=== PATIENT | male | born 1935 | race Caucasian/White ===

== ENCOUNTER 2020-02-04 12:25 | Outpatient (CLI) | payer MEDICARE, BC, SELFPAY ==
--- NOTE | 2020-02-04 12:36 | US_ITS ---
WS: [id number] RENAL ULTRASOUND HISTORY: ABNORMAL FINDING ON URINALYSIS COMPARISON: 02/18/2019 TECHNIQUE: 2-D and color Doppler imaging of the kidney submitted. Right kidney: 14.0 cm x 6.5 cm x 7.2 cm. Kidney is slightly enlarged. No hydronephrosis. Large cyst from the superior kidney measures 9.7 x 7 .8 x 10.5 cm. No solid component. There is an additional exophytic cyst from the superior pole. There are several small cyst throughout the remaining RIGHT kidney. Left kidney: 11.3 cm x 4.9 cm x 5.8 cm. Normal size kidney. Partially septated cyst in the mid kidney measures 1.5 x 1.7 x 2.0 cm. Additional simple cyst from the inferior pole measures 2.4 x 2.2 x 2.3 cm. Aorta: Normal. Urinary Bladder: Nondistended. Prostate gland is enlarged. US/US renal BI* [id number] IMPRESSION: 1. Bilateral renal cysts with no obstruction. 2. Largest cyst upper pole RIGHT kidney measures 9.7 x 7.8 x 10.5 cm. 3. Minimally complex cyst with septation mid LEFT kidney is unchanged with a m aximum diameter of 2.0 cm.
== END 2020-02-04 12:26 | disposition home or self-care (01) ==
LOC: RAD 12:29
PROVIDERS: Visit Provider Nurse Practitioner Family
DX: R82.90 Unspecified abnormal findings in urine (principal); Q61.02 Congenital multiple renal cysts
CPT/HCPCS: 76770

== ENCOUNTER 2020-04-25 13:12 | Outpatient (CLI) | payer MEDICARE, BC, SELFPAY ==
--- NOTE | 2020-04-25 13:31 | XR_ITS ---
WS: [id number] CHEST 2 VIEWS HISTORY: SHORTNESS OF BREATH COMPARISON: 08/29/2017 Lungs: Hyperexpanded lungs with flattened diaphragms. No pneumonia. No pleural effusion. Cardiac size: Normal. Mediastinum/Aorta: Normal mediastinum. Bones: Normal. XR/XR chest 2V* [id number] IMPRESSION: Chronic emphysema. No pneumonia.
== END 2020-04-25 13:13 | disposition home or self-care (01) ==
LOC: RADWPI 13:17
PROVIDERS: PCP Family Medicine; Visit Provider Nurse Practitioner Family
DX: R06.02 Shortness of breath (principal)
CPT/HCPCS: 71046

== ENCOUNTER 2020-09-12 11:42 | Outpatient (CLI) | payer MEDICARE, BC, SELFPAY ==
--- NOTE | 2020-09-12 11:52 | XRR_ITS ---
PROCEDURE INFORMATION: Exam: XR Chest Exam date and time: 09/12/2020 11:52 AM Age: 85 years old Clinical indication: Shortness of breath TECHNIQUE: Imaging protocol: XR of the chest. Views: 2 views. COMPARISON: CR XR chest 2V* [id number] 04/25/2020 1:36 PM FINDINGS: Lungs: There is increasing hazy prominence of interstitial infiltration in the left base which could represent a developing interstitial pneumonia possibly viral in nature. Subsegmental atelectasis is present in both lung bases. Pleural spaces: Unremarkable. No pleural effusion. No pneumothorax. Heart/Mediastinum: Unremarkable. No cardiomegaly. Bones/joints: Unremarkable. XR/XR chest 2V* [id number] IMPRESSION: There is developing mild hazy interstitial haze in the left base which may represent a developing interstitial pneumonia. Correlate clinically.
== END 2020-09-12 11:43 | disposition home or self-care (01) ==
LOC: RAD 11:50
PROVIDERS: PCP Family Medicine; Visit Provider Nurse Practitioner Family
DX: R06.02 Shortness of breath (principal)
CPT/HCPCS: 71046

== ENCOUNTER 2020-09-22 12:59 | Outpatient (CLI) | payer MEDICARE, BC, SELFPAY ==
--- NOTE | 2020-09-22 | CT_ITS ---
WS: [id number] CT CHEST TECHNIQUE: Noncontrast CT of the chest with coronal and sagittal reformatted images. CLINICAL INFORMATION: ASBESTOS EXPOSURE COMPARISON: None. DLP: 588.[address] scans at [facility] use at least one of these dose optimization techniques: automat ed exposure control; mA and/or kV adjustment per patient size (includes targeted exams where dose is matched to clinical indication); or iterative reconstruction. FINDINGS: Moderate chronic emphysematous changes. Patchy hazy groundglass infiltrates in the inferior posterior segment of both upper lobes bilaterally in a subpleural distribution. Small amount of patchy hazy ri ght basilar infiltrate in right middle lobe. Dependent parenchymal opacities/round atelectasis in bot h lung bases with intrinsic calcifications. Slight hazy opacities in both lower lobes. Mild bilateral traction bronchiectasis in the right greater than left lower lobes. A few calcified granulomas. Noncalcified nodule left upper lobe measuring 5 mm. Additional tiny nonc alcified nodule in the right upper lobe the lung apex anteriorly measuring 4 mm. No mediastinal or hi lar lymphadenopathy. Aortic calcification. Coronary calcification. Small pericardial effusion. Calcif ied subcarinal lymph nodes. Normal GE junction. Fatty atrophy of the pancreas. Adrenal glands are normal. Partially visualized lo bulated cyst upper pole right kidney measuring 9.5 x 8.1 CM. Hypertrophic changes thoracic spine. CT/CT chest wo con [id number] IMPRESSION: 1. Hazy groundglass interstitial infiltrates in the mid and lower lungs bilate rally mainly in a subpleural distribution. 2. Pleural thickening with dependent parenchymal opacities/round atelectasis i n both lung bases with intrinsic calcifications. Findings can be seen with asbe stos related lung disease. Recommend further evaluation with high-resolution CT and pulmonology consultation. 3. Bilateral right greater than left lower lobe traction bronchiectasis. 4. No mediastinal or hilar lymphadenopathy. 5. Small pericardial effusion.
== END 2020-09-22 13:00 | disposition home or self-care (01) ==
LOC: RADWPI 13:05
PROVIDERS: PCP Family Medicine; Visit Provider Nurse Practitioner Family
DX: Z77.090 Contact with and (suspected) exposure to asbestos (principal); R06.02 Shortness of breath; I31.3 Pericardial effusion (noninflammatory); J47.9 Bronchiectasis, uncomplicated; J98.11 Atelectasis
CPT/HCPCS: 71250

== ENCOUNTER 2020-09-29 10:54 | Outpatient (CLI) | payer MEDICARE, BC, SELFPAY ==
--- NOTE | 2020-09-29 11:24 | CT_ITS ---
WS: [id number] CT CHEST CT-HIGH RESOLUTION, NONCONTRAST. HISTORY: Interstitial lung disease. Technique: High-resolution chest CT is performed in inspiration, expiration, supine and prone positio neleam. All CT scans at [facility] use at least one of these dose optimization techniques: automa cali exposure control; mA and/or kV adjustment per patient size (includes targeted exams where dose is matched to clinical indication); or iterative reconstruction. DLP: 694.72 mGycm COMPARISON: 09/22/2020 Findings: Mild pulmonary hyperexpansion. Mild peripheral interstitial thickening and reticulations. T here are a few areas of groundglass attenuation in the periphery of the LEFT upper lobe, RIGHT middle lobe and lower lobes bilaterally. More focal areas of conglomeration at the lung bases. These focal areas of consolidation persist and do not change with expiration or prone imaging. There is very slig ht improvement in some of the groundglass areas of attenuation suggesting these are probably dependen t related and atelectasis. They did not completely resolved. No definite air trapping. Focal areas of very mild traction bronchiectasis at the lung bases bilaterally. No adenopathy. Mild ectasia thoracic aorta. Heart is slightly enlarged. CT/CT chest wo con [id number] Impression: 1. Very mild peripheral changes of early pulmonary fibrosis. No honeycombing a t this time. Traction bronchiectasis at the lung bases bilaterally and focal ar eas of conglomeration. 2. No definite air trapping. 3. Groundglass opacifications slightly improved with prone positioning sugges ting there may be a component of atelectasis. Consider acute superimposed proce ss on chronic disease. Consider chronic PE.
== END 2020-09-29 10:55 | disposition home or self-care (01) ==
PROVIDERS: PCP Family Medicine; Visit Provider Nurse Practitioner Family
DX: R91.8 Other nonspecific abnormal finding of lung field (principal); J84.9 Interstitial pulmonary disease, unspecified; J47.9 Bronchiectasis, uncomplicated
CPT/HCPCS: 71250

== ENCOUNTER 2020-10-16 08:35 | Outpatient (CLI) | payer MEDICARE, BC, SELFPAY ==
--- NOTE | 2020-10-16 08:42 | USCV_ITS ---
Sumit Posey Age: 85 Gender: M : 1935 Exam Date: 10/16/2020 09:15 Ordering Phys: Viviana Ribeiro NP Technologist: Exam Location: [facility] [place] Indication: SOB BP: 120 / 70 HR: 74 Rhythm: Sinus Technical Quality: Very technically difficult study MEASUREMENTS (Male / Female) Normal Values 2D ECHO LV Diastolic Diameter PLAX 4.5 cm 4.2 - 5.9 / 3.9 - 5.3 cm LV Systolic Diameter PLAX 3.5 cm IVS Diastolic Thickness 1.3 cm 0.6 - 1.0 / 0.6 - 0.9 cm IVS Systolic Thickness 1.8 cm LVPW Diastolic Thickness 1.2 cm 0.6 - 1.0 / 0.6 - 0.9 cm LVPW Systolic Thickness 1.7 cm LVOT Diameter 2.1 cm LV Ejection Fraction 2D Teich 37.8 % LV Ejection Fraction MOD 2C 52.6 % LV Ejection Fraction 2C AL 53.7 % LA Diameter 4.2 cm DOPPLER AV Peak Velocity 157.0 cm/s MV Area PHT 5.0 cm squared Mitral E to A Ratio 0.7 MV E' Velocity 24.5 cm/s Mitral E to MV E' Ratio 7.8 Mitral E to LV E' Lateral Ratio 8.5 Mitral E to LV E' Septal Ratio 7.3 TR Peak Velocity 125.0 cm/s TR Peak Gradient 6.3 mmHg Right Atrial Pressure 3.0 mmHg Pulmonary Artery Systolic Pressu 9.3 mmHg FINDINGS Left Ventricle Right Ventricle Right Atrium Left Atrium Mitral Valve Aortic Valve Tricuspid Valve Pulmonic Valve Pericardium Aorta CONCLUSIONS Technically very difficult study due to suboptimal images therefore full interpretation of studies not possible Normal left ventricle ejection fraction estimated ejection fraction at least 60%. Normal right ventricle size and function Valves are not well visualized No pericardial effusion noted Rosa Hope MD (Electronically Signed) Final Date: 17 October 2020 22:14 S
== END 2020-10-16 08:36 | disposition home or self-care (01) ==
PROVIDERS: PCP Family Medicine; Visit Provider Nurse Practitioner Family
DX: R06.02 Shortness of breath (principal)
CPT/HCPCS: C8929

== ENCOUNTER 2021-02-20 08:46 | Outpatient (CLI) | payer MEDICARE, BC, SELFPAY ==
--- NOTE | 2021-02-20 09:04 | US_ITS ---
WS: [id number] Complete ABDOMINAL ULTRASOUND HISTORY: HYPOALBUMINEMIA COMPARISON: 02/04/2020. Liver: 14.9 cm in length. Liver is normal size but poorly visualized due to poor acoustic windows. No abnormality identified. Gallbladder: Normally distended with no gallstones, wall thickening or pericholecystic fluid. Gallbladder wall thickness: 0.2 cm. Pancreas: Not visualized. CBD: 0.6 cm. Right kidney: 13.1 cm x 5.9 cm x 5.6 cm. Mildly enlarged kidney with a large cyst from the upper william e measures 8.4 x 9.4 x 8.0 cm which has been previously described. There are additional smaller cysts but no solid mass. Left kidney: 11.3 cm x 4.8 cm x 5.6 cm. Normal size kidney with no hydronephrosis. Multiple small cy sts. The largest in the mid kidney measures 2.4 x 2.1 x 2.1 cm. Spleen: Normal size with granulomata. Abdominal aorta and IVC are within normal limits. No ascites. US/US abdomen complete* [id number] IMPRESSION: 1. Normal gallbladder. 2. Bilateral renal cysts which have been previously described. No solid mass o r obstruction. 3. No bile duct dilatation. 4. Negative liver.
== END 2021-02-20 08:47 | disposition home or self-care (01) ==
LOC: RAD 08:55
PROVIDERS: PCP Family Medicine; Visit Provider Family Medicine
DX: E88.09 Other disorders of plasma-protein metabolism, not elsewhere classified (principal); Q61.02 Congenital multiple renal cysts
CPT/HCPCS: 76700

== ENCOUNTER 2021-06-05 08:18 | Emergency (ER) | payer MEDICARE, BC, SELFPAY ==
[2021-06-05 08:27] VITALS: BP 132/87; PULSE 112; RESP 20; TEMP 36.6; O2SAT 94; BMI 28.2
[2021-06-05 08:33] VITALS: BP 132/87; PULSE 112; RESP 20; TEMP 36.6; O2SAT 94
--- NOTE | 2021-06-05 08:47 | US_ITS ---
WS: [id number] ULTRASOUND RENAL TECHNIQUE: Ultrasound examination of both kidneys. CLINICAL INFORMATION: HANNAH COMPARISON: February 20, 2021 FINDINGS: Bilateral renal cysts similar to previous. RIGHT: Right kidney is normal in size and appearance. Echogenicity: Normal. Cortical thickness: cm; Normal. Hydronephrosis: Mild Perinephric fluid: None. Right kidney measures: 13.9 cm x 8.2 cm x 8.6 cm. LEFT: Left kidney is normal in size and appearance. Echogenicity: Normal. Cortical thickness: 1.8 cm; Normal. Hydronephrosis: Moderate Perinephric fluid: None. Left kidney measures: 12.7 cm x 7.6 cm x 7.5 cm. Normal visualized aorta. Distended bladder. US/US renal BI* [id number] IMPRESSION: 1. Mild RIGHT and moderate LEFT hydronephrosis. 2. Markedly distended urinary bladder measuring 1100cc 3. Bilateral renal cysts similar to previous.
[2021-06-05 08:53] LABS: Basophils % 0.1 %; Hematocrit 42.2 % (42.0-52.0); Hemoglobin 14.3 g/dL (11.7-16.6); Lymphocytes # 0.8 10^3/uL (0.8-4.8); Lymphocytes % 3.9 %; Mean Corpuscular HGB Conc 33.9 g/dL (30.0-36.0); Mean Corpuscular Hemoglobin 32.9 pg (28.0-34.0); Mean Corpuscular Volume 97.2 fl (80-94); Monocytes # 1.7 10^3/uL (0.2-0.9); Monocytes % 8.3 %; Neutrophils # 17.44 10^3/uL (1.8-7.7); Neutrophils % 87.2 %; Nucleated Red Blood Cells % 0 %; Platelet Count 225 10^3/cmm (130-400); Red Blood Count 4.34 10^6/uL (4.1-5.3); Red Cell Distribution Width 12.6 % (12.1-15.1)
--- NOTE | 2021-06-05 08:53 | ED_ITS ---
HPI - Abdominal Pain General: Chief Complaint: Abdominal Pain Stated Complaint: Stomach pain, Doctor sent pt. Time Seen by Provider: 06/05/21 08:20 Source: patient Mode of arrival: ambulatory Limitations: altered mental status (Chronic dementia issues) History of Present Illness: 86-year-old male presents emergency room with complaints of lower abdominal pain suprapubic area pain. He has been having frequent but relatively painless urination. He has a history of BPH reports he is going to the bathroom about every 15 to 20 minutes in small amounts. He is not had any fever sweats or chills. He was seen yesterday with complaint of abdominal pain and presumptively treated with antibiotics for diverticulitis. Lab work done evidently indicated acute renal injury and when the results came back sworn he was contacted by his primary care doctor and referred to the emergency room. Denies any chest pain or shortness of breath. He has had loose stools recently no hematochezia melena hematemesis or coffee- ground emesis. His chronic dementia issues is not had any significant change recently and feels he is at his normal baseline. He is on tamsulosin 1 he has had no medication changes recently. Symptoms started about 3 to 4 days ago and are progressively worsening. MD elicited complaint: abdominal pain Onset (ago): day(s) (3-4) Location: Suprapubic Severity: mild Quality: cramping Exacerbating factors: nothing Relieving factors: nothing Associated Symptoms: Reports bloating, change in bowel habits, GI cramping, diarrhea and poor appetite; Denies anorexia, belching, change in stool character, chills, coffee ground emesis, constipation, dyspepsia, dysuria, excessive flatus, fever(s), heartburn, hematochezia, hematuria, hematemesis, fecal incontinence, loose stools, melena, nausea and vomiting Review of Systems Const: Denies: fever(s) or chills ENMT: Denies: throat pain, ear or mastoid pain, nasal discharge or nasal congestion Card: Denies: chest pain, edema, dyspnea on exertion or orthopnea Resp: Denies: dyspnea, productive cough or non-productive cough GI: Reports: diarrhea, bloating, GI cramping and change in bowel habits; Denies: nausea, vomiting, hematemesis, coffee ground emesis, heartburn, constipation, belching, excessive flatus, fecal incontinence, change in stool character, hematochezia or melena : Denies: dysuria or hematuria PFSH ED PFSH: Medical History COPD (chronic obstructive pulmonary disease) Social History Smoking and tobacco status: former smoker (Smoked 30 years at 1 ppd. Quit in 1991) Quit status (tobacco): has quit using tobacco Year quit tobacco: 1991 Former quit date comment: Smoked 30 years at 1 ppd Second hand smoke exposure: No Smoking risk assessment/counseling performed?: No Alcohol intake: former Physical Exam Const: COMMON NORMALS: no acute distress GENERAL APPEARANCE: cooperative and comfortable ORIENTATION/CONSCIOUSNESS: Yes awake HENMT: COMMON NORMALS: normocephalic and atraumatic HEAD & SCALP: normo cephalic and atraumatic Neck/C-Spine: COMMON NORMALS: no JVD Resp: COMMON NORMALS: normal respiratory effort, No retractions, No use of accessory muscles and clear to auscultation bilaterally AUSCULTATION: clear to auscultation bilaterally Cardio: COMMON NORMALS: no JVD, regular rate, regular rhythm and No murmurs present (Cardio) RATE: regular rate RHYTHM: regular rhythm GI: COMMON NORMALS: Soft to palpation and No hepatosplenomegaly present AUSCULTATION: Yes normoactive bowel sounds PALPATION: Yes Soft to palpation, Yes Tenderness to palpation present (GI) (Suprapubic fullness and mild tenderness bladder palpable to the level of 3 ), No Guarding due to palpation present (GI) and Yes No hepatosplenomegaly present : COMMON NORMALS: Yes no CVA tenderness BLADDER/KIDNEY EXAM: Yes no CVA tenderness Back/Pelvis: COMMON NORMALS: no CVA tenderness Extremity: COMMON NORMALS: normal to inspection, capillary refill normal, no clubbing, cyanosis or edema, no calf tenderness and no pedal edema Skin: COMMON NORMALS: no rashes or lesions noted GENERAL SKIN EXAM: no rashes or lesions noted Course Vital Signs: Vital signs: Vital Signs Temperature 97.8 F 06/05/21 08:33 Pulse Rate 85 06/05/21 11:00 Respiratory Rate 20 H 06/05/21 11:00 Blood Pressure 150/89 06/05/21 11:00 Pulse Oximetry 94 06/05/21 11:00 MDM - Abdominal Pain Medical Decision Making Labs from the visit yesterday reviewed. Renal function bilirubin are much better. He does look like is a small bladder infection on exam he obviously had urinary retention. Ultrasound and placement of catheter confirms large volume urine out immediately after placement he is feeling better. Will cover with short course of Cipro as he does seem to have some sign of infection on his urine is also being cultured. Additionally we will increase his tamsulosin and set him up for outpatient follow-up with urology. Discussed with the that he will need a leg bag for the next several days. He should have his lab work repeated in 2 to 3 days with his primary care doctor. His white count is markedly elevated but on exam after placement of Cardenas he has no significant abdominal pain suspect this may have been stress from the urinary retention he is not had a fever at this time. We are covering with antibiotics till we get the culture back. He was also given 1 L of fluid prior to discharge. Overall patient does not toxic in appearing advised the to return if she has any concerns or she develops new or different symptoms. 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 Medical Records I reviewed the patient's medical records. Lab Data I reviewed the patient's lab results. : 06/05/21 08:46 06/05/21 08:46 Labs/Radiology: Radiology Impressions Renal Ultrasound 06/05/21 08:47 IMPRESSION: 1. Mild RIGHT and moderate LEFT hydronephrosis. 2. Markedly distended urinary bladder measuring 1100cc 3. Bilateral renal cysts similar to previous. Laboratory Results WBC 20.0 10^3/uL (4.0-10.0) H 06/05/21 08:46 RBC 4.34 10^6/uL (4.1-5.3) 06/05/21 08:46 Hgb 14.3 g/dL (11.7-16.6) 06/05/21 08:46 Hct 42.2 % (42.0-52.0) 06/05/21 08:46 MCV 97.2 fl (80-94) H 06/05/21 08:46 MCH 32.9 pg (28.0-34.0) 06/05/21 08:46 MCHC 33.9 g/dL (30.0-36.0) 06/05/21 08:46 RDW 12.6 % (12.1-15.1) 06/05/21 08:46 Plt Count 225 10^3/cmm (130-400) 06/05/21 08:46 MPV 11.0 fL (7.4-10.4) H 06/05/21 08:46 Neut % (Auto) 87.2 % 06/05/21 08:46 Lymph % (Auto) 3.9 % 06/05/21 08:46 Mccreary % (Auto) 8.3 % 06/05/21 08:46 Eos % (Auto) 0.0 % 06/05/21 08:46 Baso % (Auto) 0.1 % 06/05/21 08:46 Neut # (Auto) 17.44 10^3/uL (1.8-7.7) H 06/05/21 08:46 Lymph # (Auto) 0.8 10^3/uL (0.8-4.8) 06/05/21 08:46 Mccreary # (Auto) 1.7 10^3/uL (0.2-0.9) H 06/05/21 08:46 Eos # (Auto) 0.0 10^3/uL (0.0-0.8) 06/05/21 08:46 Baso # (Auto) 0.0 10^3/uL (0.0-0.1) 06/05/21 08:46 Nucleated RBC % (auto) 0 % 06/05/21 08:46 Nucleated RBCs # 0.0 /100WBC 06/05/21 08:46 Sodium 138 mmol/L (136-145) 06/05/21 08:46 Potassium 4.5 mmol/L (3.5-5.1) 06/05/21 08:46 Chloride 103 mmol/L (98-107) 06/05/21 08:46 Carbon Dioxide 18 mmol/L (22-29) L 06/05/21 08:46 Anion Gap 21.5 (5-19) H 06/05/21 08:46 BUN 60 mg/dL (8-23) H 06/05/21 08:46 Creatinine 1.8 mg/dL (0.7-1.2) H 06/05/21 08:46 GFR Calculation Not Reportable 06/05/21 08:46 Glucose 224 mg/dL (65-115) H 06/05/21 08:46 Calculated Osmolality 310 mOsm/kg (285-295) H 06/05/21 08:46 Lactic Acid 2.1 mmol/L (0.5-2.2) 06/05/21 09:30 Calcium 9.2 mg/dL (8.5-10.5) 06/05/21 08:46 Total Bilirubin 1.7 mg/dL (0.15-1.2) H 06/05/21 08:46 AST 48 U/L (0-40) H 06/05/21 08:46 ALT 40 U/L (0-41) 06/05/21 08:46 Alkaline Phosphatase 82 IU/L (40-130) 06/05/21 08:46 Total Protein 7.0 g/dL (6.6-8.7) 06/05/21 08:46 Albumin 4.2 g/dL (3.5-5.2) 06/05/21 08:46 Globulin 2.8 g/dL (1.3-4.6) 06/05/21 08:46 Urine Color Yellow (Yellow) 06/05/21 09:47 Urine Appearance Clear (CLEAR) 06/05/21 09:47 Urine pH 5 (5-7) 06/05/21 09:47 Ur Specific [place] 1.015 (1.005-1.030) 06/05/21 09:47 Urine Protein Neg (Negative) 06/05/21 09:47 Urine Glucose (UA) Norm (Normal) 06/05/21 09:47 Urine Ketones Negative (Negative) 06/05/21 09:47 Urine Blood 2+ (Negative) H 06/05/21 09:47 Urine Nitrate Negative (Negative) 06/05/21 09:47 Urine Bilirubin Neg (Negative) 06/05/21 09:47 Urine Urobilinogen Norm mg/dL (Negative) 06/05/21 09:47 Ur Leukocyte Esterase Trace (Negative) H 06/05/21 09:47 Urine RBC 10-15 /hpf (0-2) H 06/05/21 09:47 Urine WBC 5-10 /hpf (0-5) H 06/05/21 09:47 Ur Squamous Epith Cells 0-4 /hpf (0-5) H 06/05/21 09:47 Amorphous Sediment Not Reportable 06/05/21 09:47 Urine Bacteria Trace /hpf (NONE) 06/05/21 09:47 Urine Mucus 1+ /hpf 06/05/21 09:47 Discharge Plan Discharge Patient Disposition: Home Clinical Impression: Acute urinary retention, Acute kidney injury, Gilbert syndrome Condition: Stable Prescriptions: New Cipro 250 mg tablet 250 mg PO BID Qty: 10 0RF Changed tamsulosin 0.4 mg capsule 0.8 mg PO DAILY Qty: 60 0RF No Action atorvastatin 40 mg tablet 40 mg PO BEDTIME 0RF Spiriva Respimat 2.5 mcg/actuation mist 2 puff inhalation DAILY 0RF multivitamin Tablet 1 tab PO QAM 0RF aspirin [Adult Low Dose Aspirin] 81 mg tablet,delayed release (DR/EC) 81 mg PO QAM 0RF levothyroxine 125 mcg tablet 125 mcg PO QAM 0RF ProAir HFA 90 mcg/actuation HFA aerosol inhaler 2 puff INHALATION Q4H PRN (Reason: Shortness Of Breath) 0RF amoxicillin-pot clavulanate 500-125 mg tablet 1 tab PO TID 0RF Rx Instructions: rx filled 06/04/21 10d/s midodrine 10 mg tablet 10 mg PO TID 0RF Discharge Orders: Discharge ED (Routine); Ordered 06/05/21 Ordered By: Ousmane Gentile Referrals: Remington Patel MD [Primary Care Provider] - Discharge Diet: Usual diet Patient Instructions: Opioid Safety Activity Restrictions/Additional Instructions: surgery manager will make arrangements for you to follow-up with urologist within the next 10 to 14 days. Use the leg bag until then. Increase tamsulosin to 2 tablets at night. Also take the 5-day course of ciprofloxacin. You have repeat labs done in 2 to 3 days at your primary care doctor's office return if you have further problems. Coding Level of Care Code ED Data Operations Manager for Chg Fwd Exam Comprehensive
[2021-06-05 09:22] LABS: Alanine Aminotransferase 40 U/L (0-41); Albumin Level 4.2 g/dL (3.5-5.2); Alkaline Phosphatase 82 IU/L (40-130); Blood Urea Nitrogen 60 mg/dL (8-23); Calcium 9.2 mg/dL (8.5-10.5); Carbon Dioxide 18 mmol/L (22-29); Chloride 103 mmol/L (98-107); Globulin 2.8 g/dL (1.3-4.6); Glucose 224 mg/dL (65-115); Osmolality Calculated 310 mOsm/kg (285-295); Sodium 138 mmol/L (136-145); Total Bilirubin 1.7 mg/dL (0.15-1.2)
[2021-06-05 09:24] LABS: Anion Gap 21.5 (5-19); Aspartate Amino Transferase 48 U/L (0-40); Potassium 4.5 mmol/L (3.5-5.1)
[2021-06-05 09:33] VITALS: PULSE 92; O2SAT 93
[2021-06-05 10:08] LABS: Lactic Sepsis W/Reflex 2.1 mmol/L (0.5-2.2)
[2021-06-05 10:13] LABS: Add Urine Microscopic? YES; Bilirubin Urine Neg (Negative); Blood Urine 2+ (Negative); Glucose Urine UA Norm (Normal); Ketones Urine Negative (Negative); Leukocyte Esterase Urine Trace (Negative); Nitrate Urine Negative (Negative); Protein Urine Neg (Negative); Specific Gravity, Urine 1.015 (1.005-1.030); Urine Appearance Clear (CLEAR); Urine Color Yellow (Yellow); Urobilinogen Urine Norm (Negative); pH Urine 5 (5-7)
[2021-06-05 10:14] LABS: Add Urine Culture? Yes; Bacteria Urine TRACE /hpf; Mucus Urine 1+ /hpf; Squamous Epithelial Cell Urine 0-4 /hpf (0-5)
[2021-06-05 10:30] VITALS: BP 141/88; PULSE 86; RESP 18; O2SAT 93
[2021-06-05] MEDS: sodium chloride 0.9% 1,000 ML 999 ML IV (10:36)
[2021-06-05 11:00] VITALS: BP 150/89; PULSE 85; RESP 20; O2SAT 94
[2021-06-05 11:26] LABS: Reflex Lactate Order REFLEX LACTIC ORDERD
== END 2021-06-05 11:40 | disposition home or self-care (01) ==
PROVIDERS: Emergency Provider Family Medicine; PCP Family Medicine
DX: R33.9 Retention of urine, unspecified (principal); N17.9 Acute kidney failure, unspecified; E80.4 Gilbert syndrome; Z79.82 Long term (current) use of aspirin; J44.9 Chronic obstructive pulmonary disease, unspecified; Z87.891 Personal history of nicotine dependence
CPT/HCPCS: 51702; 76770; 76857; 80053; 81001; 83605; 85025; 87040; 87086; 96360; 99284; J7030

== ENCOUNTER 2021-06-15 10:23 | Outpatient (CLI) | payer MEDICARE, BC, SELFPAY ==
--- NOTE | 2021-06-15 11:02 | ECG_ITS ---
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 Measurements Intervals [place] Rate: 85 P: 46 IN: 150 QRS: 27 QRSD: 80 T: 25 QT: 348 QTc: 416 Interpretive Statements SINUS RHYTHM WITH OCCASIONAL SUPRAVENTRICULAR PREMATURE COMPLEXES MINIMAL ST DEPRESSION [0.025+ mV ST DEPRESSION] Compared to ECG 07/18/2017 10:06:55 ST (T wave) deviation now present Myocardial infarct finding no longer present Electronically Signed On 06-15-2021 11:16:02 CDT by Anabelle Mclain M.D. [id number]
[2021-06-15 11:19] LABS: Bacteria Urine TRACE /hpf; Bilirubin Urine 1+ (Negative); Blood Urine 3+ (Negative); Glucose Urine UA Norm (Normal); Ketones Urine Negative (Negative); Leukocyte Esterase Urine Trace (Negative); Mucus Urine 1+ /hpf; Nitrate Urine Negative (Negative); Protein Urine 1+ (Negative); RBC Urine >100 /hpf (0-2); Squamous Epithelial Cell Urine 0-4 /hpf (0-5); Urine Appearance SL Hazy (CLEAR); Urine Color Yellow (Yellow); Urobilinogen Urine 4 mg/dL (Negative); WBC Urine 0-4 /hpf (0-5); pH Urine 7 (5-7)
[2021-06-15 11:20] LABS: Anion Gap 13.9 (5-19); Blood Urea Nitrogen 15 mg/dL (8-23); Carbon Dioxide 24 mmol/L (22-29); Chloride 103 mmol/L (98-107); Glucose 129 mg/dL (65-115); Osmolality Calculated 287 mOsm/kg (285-295); Potassium 3.9 mmol/L (3.5-5.1); Sodium 137 mmol/L (136-145)
[2021-06-15 11:20] LABS: Add Urine Culture? Yes
== END 2021-06-15 10:24 | disposition home or self-care (01) ==
LOC: LAB 10:29
PROVIDERS: PCP Family Medicine; Visit Provider Urology
DX: Z01.818 Encounter for other preprocedural examination (principal); D49.4 Neoplasm of unspecified behavior of bladder
CPT/HCPCS: 36415; 80048; 81001; 93005

== ENCOUNTER 2022-10-19 12:10 | Emergency (ER) | payer MEDICARE, BC, SELFPAY ==
[2022-10-19] VITALS (8 sets, daily range): BP systolic 135–175; BP diastolic 89–113; PULSE 99–115; RESP 16; TEMP 36.8; O2SAT 94–97
--- NOTE | 2022-10-19 13:32 | W.ED.NAVMDI ---
HPI - Nausea/Vomiting/Diarrhea General: Chief complaint: Nausea/Vomiting/Diarrhea Stated complaint: Diarrhea Time Seen by Provider: 10/19/22 13:27 History of Present Illness: Mr. Posey is an 87-year-old gentleman with history of dementia presented the emergency department for evaluation of abdominal symptoms. He notes acute onset of diarrhea with numerous watery episodes per day for the past 3 days. Mild abdominal cramping. Some elevated heart rate and pallor as well as generalized malaise. No fevers. Denies preceding antibiotic use or other known triggering event. No other specific changes in health, exacerbating, or alleviating factors identified. Onset (ago): day(s) Description of diarrhea: watery Associated nausea: Yes Associated abdominal pain: Yes Location of pain: Diffuse Pain consistency: intermittent Severity: moderate Quality: cramping Associated symtoms: Reports nausea Review of Systems General: Reports: 10 or more systems reviewed and unremarkable except in HPI and below GI: Reports: nausea PFSH ED PFSH: Medical History BPH (benign prostatic hyperplasia) COPD (chronic obstructive pulmonary disease) Dementia History of prostate cancer Hypercholesterolemia Hypothyroidism Orthostatic hypotension Social History Smoking and tobacco status: former smoker (Smoked 30 years at 1 ppd. Quit in 1991) Quit status (tobacco): has quit using tobacco Year quit tobacco: 1991 Former quit date comment: Smoked 30 years at 1 ppd Second hand smoke exposure: No Smoking risk assessment/counseling performed?: No Alcohol intake: former Physical Exam Const: COMMON NORMALS: alert GENERAL APPEARANCE: cooperative and well developed HENMT: COMMON NORMALS: normocephalic and atraumatic HEAD & SCALP: normocephalic and atraumatic Eye: COMMON NORMALS: conjunctivae normal CONJUNCTIVA: Yes conjunctivae normal SCLERA: sclerae normal Neck/C-Spine: COMMON NORMALS: supple GENERAL: Yes trachea midline Resp: COMMON NORMALS: clear to auscultation bilaterally EFFORT & INSPECTION: Yes able to speak in complete sentences AUSCULTATION: clear to auscultation bilaterally Cardio: COMMON NORMALS: regular rhythm RATE: tachycardic RHYTHM: regular rhythm GI: COMMON NORMALS: Soft to palpation PALPATION: Yes Soft to palpation, Yes Tenderness to palpation present (GI), No Guarding due to palpation present (GI) and No Rigid due to palpation Extremity: GENERAL: Yes normal exam except as noted and No edema Neuro: COMMON NORMALS: moves all extremities SENSORIUM/ORIENTATION: Yes alert and No Orientation impaired Psych: COMMON NORMALS: mental status grossly normal and Normal thought process present THOUGHT PROCESS: Normal thought process present Procedures Rectal Disimpaction Time out performed rectal disimpaction: Yes Indication: fecal impaction Technique: manual disimpaction with gloved finger Result: significant stool output Patient Tolerated Procedure: well and no complications Course Vital Signs: Vital signs: Vital Signs Temperature 98.2 F 10/19/22 12:31 Pulse Rate 102 H 10/19/22 20:17 Respiratory Rate 16 10/19/22 12:31 Blood Pressure 147/99 10/19/22 20:17 Pulse Oximetry 96 10/19/22 20:17 Oxygen Delivery Me thod Room Air 10/19/22 20:17 MDM - Nausea/Vomiting/Diarrhea Medical Decision Making 87-year-old gentleman presenting with abdominal symptoms. Exam as above. Abdominal tenderness without evidence of acute surgical abdomen. Somewhat ill however nontoxic. Labs with leukocytosis, normal hemoglobin and platelet count. Metabolic panel with evidence of dehydration. Mild elevation in T. bili again noted. Negative Booker and pain is not specifically worse in the right upper quadrant. CT with rectal stool ball and moderate colonic stool burden. Lung nodule and incidental findings discussed. With need for follow-up discussed. Rectal disimpaction performed with improvement. Treated with IV fluids and medications and patient subsequently. Discussed possible disposition options, patient and are pleased with improvement and understand need for hydration and close follow-up. They were comfortable with outpatient management. The results of ED evaluation were discussed with the patient including prescriptions and/or symptomatic cares (if applicable) including appropriate and responsible use, followup plan, and return precautions. The patient verbalized understanding and felt safe for discharge. Medical Records I reviewed the patient's medical records. Lab Data I reviewed the patient's lab results. 10/19/22 13:59 10/19/22 13:59 Radiology Impressions Abdomen/Pelvis CT 10/19/22 14:09 IMPRESSION: 1. Large rectal stool ball with otherwise moderate colonic stool burden. 2. 1.5 x 1.0 cm left lower lobe nodule. For both low risk and high risk patients, consider CT Chest at 3 months, PET/CT or biopsy. (Reference: Clay) 3. Mildly increased size of ovoid 1.3 cm hypodensity just posterior to the distal common duct may represent bile duct diverticulum. 4. Mild left pelvocaliectasis without stone similar in degree to April 2017 may represent patulous collecting system. 5. Atherosclerosis with stable 2.5 cm infrarenal abdominal aortic ectasia. 6. Additional chronic and incidental findings as above, to include colonic diverticulosis and gynecomastia. COMMENTS: Consistent with the [place] [employer]'s Incidental Findings Committee white paper (J Am Good Radiol 2018): Any incidental renal lesion less than 1 cm or classified as too small to characterize, or any incidental cystic renal lesion characterized as simple-appearing, is likely benign. No follow-up imaging is recommended for these lesions per consensus recommendations based on imaging criteria. REFERENCES: Clay Huerta, et al. Guidelines for Management of Incidental Pulmonary Nodules Detected on CT Images: From the Fleischner Society 2017. Radiology. 2017;284(1):228-243. Laboratory Results WBC 17.6 10^3/uL (4.0-10.0) H 10/19/22 13:59 RBC 4.64 10^6/uL (4.1-5.3) 10/19/22 13:59 Hgb 14.7 g/dL (11.7-16.6) 10/19/22 13:59 Hct 44.4 % (42.0-52.0) 10/19/22 13:59 MCV 95.7 fl (80-94) H 10/19/22 13:59 MCH 31.7 pg (28.0-34.0) 10/19/22 13:59 MCHC 33.1 g/dL (30.0-36.0) 10/19/22 13:59 RDW 13.4 % (12.1-15.1) 10/19/22 13:59 Plt Count 244 10^3/cmm (130-400) 10/19/22 13:59 MPV 10.7 fL (7.4-10.4) H 10/19/22 13:59 Neut % (Auto) 87.4 % 10/19/22 13:59 Lymph % (Auto) 4.6 % 10/19/22 13:59 [place] % (Auto) 7.5 % 10/19/22 13:59 Eos % (Auto) 0.0 % 10/19/22 13:59 Baso % (Auto) 0.2 % 10/19/22 13:59 Neut # (Auto) 15.35 10^3/uL (1.8-7.7) H 10/19/22 13:59 Lymph # (Auto) 0.8 10^3/uL (0.8-4.8) 10/19/22 13:59 [place] # (Auto) 1.3 10^3/uL (0.2-0.9) H 10/19/22 13:59 Eos # (Auto) 0.0 10^3/uL (0.0-0.8) 10/19/22 13:59 Baso # (Auto) 0.0 10^3/uL (0.0-0.1) 10/19/22 13:59 Nucleated RBC % (auto) 0 % 10/19/22 13:59 Nucleated RBCs # 0.0 /100WBC 10/19/22 13:59 Sodium 142 mmol/L (136-145) 10/19/22 13:59 Potassium 4.2 mmol/L (3.5-5.1) 10/19/22 13:59 Chloride 106 mmol/L (98-107) 10/19/22 13:59 Carbon Dioxide 19 mmol/L (22-29) L 10/19/22 13:59 Anion Gap 21.2 (5-19) H 10/19/22 13:59 BUN 33 mg/dL (8-23) H 10/19/22 13:59 Creatinine 1.5 mg/dL (0.7-1.2) H 10/19/22 13:59 GFR Calculation Not Reportable 10/19/22 13:59 Glucose 168 mg/dL (65-115) H 10/19/22 13:59 Calculated Osmolality 305 mOsm/kg (285-295) H 10/19/22 13:59 Calcium 9.3 mg/dL (8.5-10.5) 10/19/22 13:59 Total Bilirubin 1.3 mg/dL (0.15-1.2) H 10/19/22 13:59 AST 71 U/L (0-40) H 10/19/22 13:59 ALT 35 U/L (0-41) 10/19/22 13:59 Alkaline Phosphatase 87 U/L (40-130) 10/19/22 13:59 Total Protein 7.8 g/dL (6.6-8.7) 10/19/22 13:59 Albumin 4.6 g/dL (3.5-5.2) 10/19/22 13:59 Globulin 3.2 g/dL (1.3-4.6) 10/19/22 13:59 Discharge Plan Discharge Patient Disposition: Home Clinical Impression: Constipation, Fecal impaction in rectum, Leukocytosis, Dehydration, mild Condition: Stable Prescriptions: New Miralax 17 gram/dose powder 17 g PO TID PRN (Reason: constipation) Qty: 238 0RF No Action multivitamin Tablet 1 tab PO QAM ProAir HFA 90 mcg/actuation HFA aerosol inhaler 2 puff INHALATION Q4H PRN (Reason: Shortness Of Breath) Qty: 8.5 3RF atorvastatin 40 mg tablet 40 mg PO BEDTIME Qty: 30 5RF levothyroxine 125 mcg tablet 125 mcg PO QAM Qty: 90 3RF Spiriva Respimat 2.5 mcg/actuation mist 2 puff inhalation DAILY Qty: 4 5RF midodrine 10 mg tablet 10 mg PO TID Rx Instructions: FOR low BLOOD PRESSURE Discharge Orders: Discharge ED (Routine); Ordered 10/19/22 Ordered By: Wilner Simeon Referrals: Vj Michelle MD [Primary Care Provider] - Discharge Diet: Advance as tolerated and Clear Liquid Discharge Activity: Increase activity as tolerated Patient Instructions: Constipation (ED), Dehydration (ED) Activity Restrictions/Additional Instructions: Thank you for visiting the emergency department. You were seen evaluate for abdominal symptoms. The most likely cause of symptoms is constipation. We are pleased that you had improvement with treatment in the emergency department. As discussed you need to continue treatment at home. 1 capful of MiraLAX 1-3 times daily and adjust for multiple soft consistency stools per day. Please ensure that you are staying hydrated. Return for uncontrolled symptoms or anything else that you are concerned about and feel needs emergency department evaluation. Coding Level of Care Code ED Organizational Consultant for Miguelito Sinha
[2022-10-19] MEDS: lactated ringers 1,000 ML 999 ML IV (14:01)
[2022-10-19 14:08] LABS: Basophils % 0.2 %; Hematocrit 44.4 % (42.0-52.0); Hemoglobin 14.7 g/dL (11.7-16.6); Lymphocytes # 0.8 10^3/uL (0.8-4.8); Lymphocytes % 4.6 %; Mean Corpuscular HGB Conc 33.1 g/dL (30.0-36.0); Mean Corpuscular Hemoglobin 31.7 pg (28.0-34.0); Mean Corpuscular Volume 95.7 fl (80-94); Mean Platelet Volume 10.7 fL (7.4-10.4); Monocytes # 1.3 10^3/uL (0.2-0.9); Monocytes % 7.5 %; Neutrophils # 15.35 10^3/uL (1.8-7.7); Neutrophils % 87.4 %; Nucleated Red Blood Cells % 0 %; Platelet Count 244 10^3/cmm (130-400); Red Blood Count 4.64 10^6/uL (4.1-5.3); Red Cell Distribution Width 13.4 % (12.1-15.1); White Blood Count 17.6 10^3/uL (4.0-10.0)
--- NOTE | 2022-10-19 14:09 | CTR_ITS ---
PROCEDURE INFORMATION: Exam: CT Abdomen And Pelvis With Contrast Exam date and time: 10/19/2022 2:52 PM Age: 87 years old Clinical indication: Abdominal pain; Generalized; Prior surgery; Surgery date: 6+ months; Surgery type: Hernia; Additional info: Profuse diarrhea, generalized abd pain TECHNIQUE: Imaging protocol: Computed tomography of the abdomen and pelvis with contrast. Radiation optimization: All CT scans at this facility use at least one of these dose optimization techniques: automated exposure control; mA and/or kV adjustment per patient size (includes targeted exams where dose is matched to clinical indication); or iterative reconstruction. Contrast material: OMNIPAQUE 350; Contrast volume: 100 ml; Contrast route: INTRAVENOUS (IV); REPORTING DATA: Count of CT and Cardiac NM exams in prior 12 months: This patient has received 0 known CTs and 0 known cardiac nuclear medicine studies in the 12 months prior to the current study. COMPARISON: 1. CT chest wo con [id number] 09/29/2020 11:[address] abdomen pelvis w con* [id number] 04/24/2017 4:06 PM RADIATION DOSE METRICS: Total DLP (mGy-cm): 1110.16 FINDINGS: Lungs: Mild dependent atelectasis. Right lower lobe calcified granuloma. 1.5 x 1.0 cm left lower lobe nodular opacity on axial image 12 of series 7. Liver: Normal without focal lesions. Gallbladder and bile ducts: Normal. No calcified stones. No ductal dilation. Just posterior to the distal common duct is a 1.3 x 0.8 cm hypodensity on axial image 40 of series 7, mildly increased in size from April 2017 when it measured 0.9 x 0.6 cm. Pancreas: Diffuse fatty infiltration of the pancreas. Spleen: Tiny splenic calcifications in keeping with sequela of old granulomatous disease. Adrenal glands: Normal. No mass. Kidneys and ureters: Bilateral renal cysts are present, as well as other subcentimeter hypodensities which are too small to characterize. Mild left pelvocaliectasis similar to April 2017 without calcified stone. Stomach and bowel: No dilatation to suggest obstruction. No evidence of mucosal thickening. Overall moderate colonic stool burden with large rectal stool ball. Colonic diverticulosis without findings of diverticulitis. Appendix: Normal. Intraperitoneal space: No free air, free fluid, or well-organized fluid collection. Vasculature: Heavy systemic atherosclerotic calcification with stable infrarenal abdominal aortic ectasia measuring 2.5 cm. Lymph nodes: No enlarged lymph nodes. Calcified mediastinal lymph node in keeping with sequela of old granulomatous disease. Urinary bladder: Urinary bladder is unremarkable. Reproductive: Unremarkable as visualized. Bones/joints: No acute fracture. Degenerative changes along the imaged axial and proximal appendicular skeletal system. Soft tissues: Bilateral gynecomastia. Small fat containing right inguinal hernia. CT/CT abdomen pelvis w con* [id number] IMPRESSION: 1. Large rectal stool ball with otherwise moderate colonic stool burden. 2. 1.5 x 1.0 cm left lower lobe nodule. For both low risk and high risk patients, consider CT Chest at 3 months, PET/CT or biopsy. (Reference: Clay) 3. Mildly increased size of ovoid 1.3 cm hypodensity just posterior to the distal common duct may represent bile duct diverticulum. 4. Mild left pelvocaliectasis without stone similar in degree to April 2017 may represent patulous collecting system. 5. Atherosclerosis with stable 2.5 cm infrarenal abdominal aortic ectasia. 6. Additional chronic and incidental findings as above, to include colonic diverticulosis and gynecomastia. COMMENTS: Consistent with the [place] [employer]'s Incidental Findings Committee white paper (J Am Good Radiol 2018): Any incidental renal lesion less than 1 cm or classified as too small to characterize, or any incidental cystic renal lesion characterized as simple-appearing, is likely benign. No follow-up imaging is recommended for these lesions per consensus recommendations based on imaging criteria. REFERENCES: [place] Huerta et al. Guidelines for Management of Incidental Pulmonary Nodules Detected on CT Images: From the Fleischner Society 2017. Radiology. 2017;284(1):228-243.
[2022-10-19 14:31] LABS: Alanine Aminotransferase 35 U/L (0-41); Albumin Level 4.6 g/dL (3.5-5.2); Alkaline Phosphatase 87 U/L (40-130); Anion Gap 21.2 (5-19); Aspartate Amino Transferase 71 U/L (0-40); Blood Urea Nitrogen 33 mg/dL (8-23); Calcium 9.3 mg/dL (8.5-10.5); Carbon Dioxide 19 mmol/L (22-29); Chloride 106 mmol/L (98-107); Globulin 3.2 g/dL (1.3-4.6); Glucose 168 mg/dL (65-115); Osmolality Calculated 305 mOsm/kg (285-295); Potassium 4.2 mmol/L (3.5-5.1); Sodium 142 mmol/L (136-145); Total Bilirubin 1.3 mg/dL (0.15-1.2); Total Protein 7.8 g/dL (6.6-8.7)
[2022-10-19] MEDS: iohexol 350 mg/mL 500 mL Btl (per mL) IV (14:53)
[2022-10-19] MEDS: polyethylene glycol 3350 Pkt 17 gm PO (17:28)
[2022-10-19] MEDS: Fleet Enema 133 mL Enema PR (17:28)
[2022-10-19] MEDS: lactulose oral liq 20 gm/30 mL UDC PO (18:27)
[2022-10-19] MEDS: magnesium hydroxide 30 mL UDC PO (18:28)
== END 2022-10-19 20:36 | disposition home or self-care (01) ==
PROVIDERS: Emergency Provider Emergency Medicine; PCP Family Medicine Adult Medicine
DX: K59.00 Constipation, unspecified (principal); D72.829 Elevated white blood cell count, unspecified; E86.0 Dehydration; J44.9 Chronic obstructive pulmonary disease, unspecified; F03.90 Unspecified dementia, unspecified severity, without behavioral disturbance, psychotic disturbance, mood disturbance, and anxiety; Z85.46 Personal history of malignant neoplasm of prostate; Z87.891 Personal history of nicotine dependence
CPT/HCPCS: 74177; 80053; 85025; 96360; 96361; 99285; J7120; Q9967

== ENCOUNTER → 2023-02-20 08:48 | Outpatient (BNVA) | payer MEDICARE, BC, SELFPAY | PROVIDERS: PCP Family Medicine Adult Medicine; Visit Provider Family Medicine Adult Medicine | DX: E78.5 Hyperlipidemia, unspecified (principal); N18.30 Chronic kidney disease, stage 3 unspecified; I95.1 Orthostatic hypotension; N40.0 Benign prostatic hyperplasia without lower urinary tract symptoms; E03.9 Hypothyroidism, unspecified; R00.0 Tachycardia, unspecified; J44.9 Chronic obstructive pulmonary disease, unspecified; Z85.46 Personal history of malignant neoplasm of prostate | CPT/HCPCS: 80053; 80061; 84443; 85025; G0103 ==

== ENCOUNTER → 2023-05-27 11:09 | Outpatient (BNVA) | payer MEDICARE, BC, SELFPAY | PROVIDERS: PCP Family Medicine Adult Medicine; Referring Provider Family Medicine Adult Medicine; Visit Provider Internal Medicine Cardiovascular Disease | DX: R07.9 Chest pain, unspecified (principal); R55 Syncope and collapse; I95.1 Orthostatic hypotension; E78.2 Mixed hyperlipidemia; E03.4 Atrophy of thyroid (acquired); N18.32 Chronic kidney disease, stage 3b; R42 Dizziness and giddiness; R94.31 Abnormal electrocardiogram [ECG] [EKG]; Z87.891 Personal history of nicotine dependence | CPT/HCPCS: 93005; 99204 ==

== ENCOUNTER 2023-05-30 15:23 | Outpatient (CLI) | payer MEDICARE, BC, SELFPAY ==
--- NOTE | 2023-05-30 15:45 | USCV_ITS ---
Paulacitlalimaría elenaSumit Age: 88 Gender: M : 1935 Exam Date: 05/30/2023 15:32 Ordering Phys: Home Mccarty MD ([email or web address]) Technologist: DANYEL [place] [facility] [place]: DIZZINESS Risk Factors: Previous Vascular Surgery: Right Brachial BP: / Left Brachial BP: / Right Left Velocity (cm/s) Spectral Plaque Velocity (cm/s) Spectral Plaque Syst/Diast Broadening Syst/Diast Broadening 78.90/ 10.00 Prox CCA 89.10 / 19.50 96.50/ 20.70 Mid CCA 84.70 / 23.30 89.30/ 20.70 Distal CCA 77.60 / 23.30 49.60/ 13.50 Prox ICA 47.80 / 12.80 69.70/ 21.70 Mid ICA 57.60 / 21.90 77.20/ 23.20 Distal ICA 50.00 / 15.90 55.90 ECA 72.50 0.90 ICA/CCA 0.70 Antegrade Vertebral Antegrade 41.10/ 12.70 cm/s 43.00/ 12.00 cm/s Tri Subclavian Tri 77.20 102.9 0 CONCLUSIONS Right ICA stenosis <50%. Mild atheromatous plaque right carotid bulb/ICA. Left ICA stenosis <50%. Mild atheromatous plaque left carotid bulb/ICA. Normal antegrade Doppler flow noted in the right vertebral artery. Normal antegrade Doppler flow noted in the left vertebral artery. Richard Doherty MD (Electronically Signed) Final Date: 02 June 2023 09:33 S
== END 2023-05-30 15:24 | disposition home or self-care (01) ==
LOC: RAD 15:23
PROVIDERS: PCP Family Medicine Adult Medicine; Visit Provider Internal Medicine Cardiovascular Disease
DX: I65.23 Occlusion and stenosis of bilateral carotid arteries (principal); R55 Syncope and collapse
CPT/HCPCS: 93880

== ENCOUNTER 2023-07-01 09:01 | Outpatient (CLI) | payer MEDICARE, BC, SELFPAY ==
--- NOTE | 2023-07-01 | ECG_ITS ---
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 Interpretive Statements NAME OF STUDY: LEXISCAN SESTAMIBI STRESS TEST INDICATION: ABNORMAL EKG, PROCEDURE: At the baseline, the EKG revealed sinus bradycardia with heart rate of 50 bpm. Nonspecific T wave changes. 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 The baseline heart was 58 bpm with a blood pressue of 143/85 mm of Hg. Lexiscan was infused over a period of 20 seconds. A total of 0.4 milligrams of Lexiscan was infused. The stress phase was continued for a total of 5 minutes. Heart rate at the end of the stress phase was 76 bpm with a blood pressure 116/67 mm of Hg. The EKG at the peak infusion revealed no significant changes. Sestamibi was injected 20 seconds after the Lexiscan infusion. Heart rate at the end of the recovery phase was 117/72 bpm with a blood pressure of 76 mm of Hg. CONCLUSION: 1. No significant EKG changes with the LexiScan infusion 2. No LexiScan induced chest pain or cardiac arrhythmia 3. Normal blood pressure and heart rate response 4. Sestamibi/sestamibi perfusion scan pending; see separate report. Electronically Signed On 07-07-2023 10:03:57 CDT by Home Mccarty M.D. [id number]
--- NOTE | 2023-07-01 09:15 | NMCV_ITS ---
NM maggie perf SPECT r/s* [id number] Sumit Posey Age: 88 Gender: M : 1935 Exam Date: 07/01/2023 09:52 Ordering Phys: Home Mccarty MD ([email or web address]) Technologist: CHARLIE Hernandez Exam Location: [facility] Indications: ABNORMAL EKG STRESS TEST Please see separate stress test report in [facility] for full findings IMAGE PROTOCOL Rest/Stress 1 Lexiscan Day Radiopharmaceutical Dose (mCi) Administration Site Administered by Rest: Tc-99m 10.8 IV CHARLIE Toth Sestamibi Stress:Tc-99m 32.6 IV CHARLIE Toth Sestamibi Rest: 01-Jul-2023 60 Discovery 630 Stress: 01-Jul-2023 30 Discovery 630 0.4mg Lexiscan. Supine position only as patient was unable to lay prone. SPECT RESULTS Technical Quality: Excellent Raw Data Analysis: Normal Image Corrections: No attenuation or motion correction applied Summed Stress Score: 8 Summed Rest Score: 3 Summed Difference Score: 5 PERFUSION FINDINGS Moderate area of minimal to moderately decreased tracer uptake involving the basal and mid inferior, basal and mid inferolateral and apical lateral regions with a significant reversibility FUNCTIONAL RESULTS (calculated via Gated SPECT) Stress Image LV EF (%): 81 Stress EDV (mL):62 TID: 0.88 Stress ESV (mL):12 FUNCTIONAL FINDINGS: Segmental wall motion analysis revealing no gross wall motion abnormalities IMPRESSIONS 1. Myocardial perfusion imaging revealing moderate area of minimal to moderately decreased tracer uptake involving the inferior, inferolateral and apical lateral regions with significant reversibility suggesting myocardial scarring with ischemia mostly in the distribution of the left circumflex artery. 2. Normal LV ejection fraction of 81%. 3. LV wall motion analysis revealing no gross wall motion abnormalities. 4. Normal LV volume No similar previous studies are available for comparison Dr Home Mccarty MD FACC (Electronically Signed) Final Date: 01 July 2023 16:46 S
[2023-07-01 09:56] VITALS: BMI 29.4
[2023-07-01] MEDS: regadenoson 0.4 Mg/5 ml Syringe 0.400000000000000022 MG IVP (10:37)
[2023-07-01 10:57] VITALS: BP 116/67; PULSE 77
== END 2023-07-01 09:02 | disposition home or self-care (01) ==
LOC: CDL 09:02
PROVIDERS: PCP Family Medicine Adult Medicine; Visit Provider Internal Medicine Cardiovascular Disease
DX: R94.31 Abnormal electrocardiogram [ECG] [EKG] (principal)
CPT/HCPCS: 36415; 78452; 93017; 96374; A9500; J2785

== ENCOUNTER → 2023-07-15 11:40 | Outpatient (BNVA) | payer MEDICARE, BC, SELFPAY | PROVIDERS: PCP Family Medicine Adult Medicine; Visit Provider Internal Medicine Cardiovascular Disease | DX: R06.02 Shortness of breath (principal); R94.39 Abnormal result of other cardiovascular function study; I95.1 Orthostatic hypotension; E78.2 Mixed hyperlipidemia; E03.4 Atrophy of thyroid (acquired); N18.32 Chronic kidney disease, stage 3b | CPT/HCPCS: 36415; 80048; 83880; 99214 ==

== ENCOUNTER → 2023-08-08 09:52 | Outpatient (BNVA) | payer MEDICARE, BC, SELFPAY | PROVIDERS: PCP Family Medicine Adult Medicine; Visit Provider Nurse Practitioner Family | DX: I95.1 Orthostatic hypotension (principal) | CPT/HCPCS: 99213 ==

== ENCOUNTER 2023-09-10 19:34 | Emergency (ER) | payer MEDICARE, BC, SELFPAY ==
--- NOTE | 2023-09-10 20:17 | XRR_ITS ---
PROCEDURE INFORMATION: Exam: XR Abdomen Exam date and time: 09/10/2023 8:37 PM Age: 88 years old Clinical indication: Bloating and constipation; Prior surgery; Surgery date: 6+ months; Surgery type: Hernia TECHNIQUE: Imaging protocol: Radiologic exam of the abdomen. Views: Frontal supine view of the abdomen. 1 View. COMPARISON: CT abdomen pelvis w con* [id number] 10/19/2022 2:52 PM FINDINGS: Gastrointestinal tract: The rectosigmoid colon is significantly distended with stool up to 11.5 cm. There is gaseous distension of the more proximal colon suggesting a low-grade obstruction due to fecalith. Small bowel is normal in caliber. No pneumatosis. Bones/joints: Mild lumbar spine degenerative changes. XR/XR abdomen 1V* [id number] IMPRESSION: Rectosigmoid fecal distension suggesting a low-grade obstruction due to fecalith
[2023-09-10 22:01] VITALS: BP 123/86; PULSE 94; RESP 16; TEMP 36.9; O2SAT 95
--- NOTE | 2023-09-10 22:53 | W.ED.ABDPA2 ---
Documented by User: ANAMARIA Foley 09/11/23 01:10 HPI - Abdominal Pain General: Chief Complaint: Abdominal Pain Stated Complaint: Bowel Issues Time Seen by Provider: 09/10/23 22:53 History of Present Illness: 88-year-old male patient comes in today with constipation x 1 week. Spouse states that he was up several times during the night trying to have a bowel movement but could not pass it. She is given milk of magnesia, MiraLAX, and other medication with minimal to no relief. Patient has had no fever or chills. Patient has had problems with constipation before in the past. Associated Symptoms: Reports constipation Review of Systems General: Reports: 10 or more systems reviewed and unremarkable except in HPI and below GI: Reports: constipation PFSH ED PFSH: Medical History Syncope and collapse Severe hypotension Hyperlipidemia CKD (chronic kidney disease), stage III History of prostate cancer Orthostatic hypotension BPH (benign prostatic hyperplasia) Hypothyroidism Dementia COPD (chronic obstructive pulmonary disease) Family History Father Chronic kidney disease (CKD) Sudden cardiac Mother Hyperlipidemia Stroke TIA (transient ischemic attack) Denies family history of CAD (coronary artery disease) Congestive heart failure (CHF) Anemia Aneurysm Arrhythmia Clotting disorder Atrial fibrillation Heart disease Congenital heart disease Carotid artery disease Pulmonary embolism Hypertension Social History Smoking and tobacco/nicotine status: former use of tobacco/nicotine Quit status (tobacco/nicotine): has quit using Year quit tobacco: 1991 Former quit date comment: Smoked 30 years at 1 ppd Second hand smoke exposure: No Alcohol intake: former Physical Exam Const: COMMON NORMALS: alert HENMT: COMMON NORMALS: normocephalic HEAD & SCALP: normocephalic Neck/C-Spine: COMMON NORMALS: full ROM Resp: COMMON NORMALS: normal respiratory effort and clear to auscultation bilaterally AUSCULTATION: clear to auscultation bilaterally Cardio: COMMON NORMALS: regular rate and regular rhythm RATE: regular rate RHYTHM: regular rhythm GI: COMMON NORMALS: Soft to palpation and non-tender PALPATION: Yes Soft to palpation Extremity: COMMON NORMALS: normal to inspection Neuro: SENSORIUM/ORIENTATION: Yes alert Skin: COMMON NORMALS: turgor normal GENERAL SKIN EXAM: turgor normal Course Vital Signs: Vital signs: Vital Signs Temperature 98.4 F 09/10/23 22:01 Pulse Rate 89 09/11/23 00:23 Respiratory Rate 16 09/10/23 22:01 Blood Pressure 123/86 09/10/23 22:01 Pulse Oximetry 97 09/11/23 00:23 Oxygen Delivery Me thod Room Air 09/11/23 00:23 MDM - Abdominal Pain Medical Decision Making 88-year-old male patient comes in today for concerns of constipation x 1 week. On exam abdomen soft with normal active bowel sounds. Skin warm and dry. Differential diagnosis constipation, bowel obstruction, dehydration. KUB noted a large amount of stool in the rectum. Patient was given a enema with some results. Digital rectal exam was performed a large amount of stool was disimpacted. Repeat enema was then given. Reviewed with Dr. Rowell who is going to assume care due to the end of my shift and discharge patient after second enema. Patient and family both reported understanding and agreed to plan. Lab Data Labs/Radiology: Radiology Impressions Abdomen X-Ray 09/10/23 20:17 IMPRESSION: Rectosigmoid fecal distension suggesting a low-grade obstruction due to fecalith Discharge Plan Discharge Patient Disposition: Home Clinical Impression: Fecal impaction in rectum Condition: Stable Prescriptions: No Action multivitamin Tablet 1 tab PO QAM pyridostigmine bromide 60 mg tablet 60 mg PO BID Qty: 60 3RF metoprolol tartrate 25 mg tablet 12.5 mg PO BID Qty: 30 3RF ProAir HFA 90 mcg/actuation HFA aerosol inhaler 2 puff INHALATION Q4H PRN (Reason: Shortness Of Breath) Qty: 8.5 3RF levothyroxine 125 mcg tablet 125 mcg PO QAM Qty: 90 3RF Spiriva Respimat 2.5 mcg/actuation mist 2 puff inhalation DAILY Qty: 4 5RF atorvastatin 80 mg tablet 80 mg PO DAILY Qty: 90 1RF Miralax 17 gram/dose powder 17 g PO TID PRN (Reason: constipation) Qty: 238 0RF Discharge Orders: Discharge ED (Routine); Ordered 09/11/23 Ordered By: Abraham Rowell Referrals: Vj Michelle MD [Primary Care Provider] - Discharge Diet: Usual diet Discharge Activity: Increase activity as tolerated Patient Instructions: Constipation (ED) Activity Restrictions/Additional Instructions: Drink plenty water and fluids. Continue with routine medications as directed. Follow-up with primary care for further instructions. Coding Level of Care Code ED [employer] for [employer] Documented by User: Abraham Rowell DO 09/11/23 02:07 HPI - Abdominal Pain General: Chief Complaint: Abdominal Pain Stated Complaint: Bowel Issues Time Seen by Provider: 09/10/23 22:53 PFSH ED PFSH: Medical History Syncope and collapse Severe hypotension Hyperlipidemia CKD (chronic kidney disease), stage III History of prostate cancer Orthostatic hypotension BPH (benign prostatic hyperplasia) Hypothyroidism Dementia COPD (chronic obstructive pulmonary disease) Family History Father Chronic kidney disease (CKD) Sudden cardiac Mother Hyperlipidemia Stroke TIA (transient ischemic attack) Denies family history of CAD (coronary artery disease) Congestive heart failure (CHF) Anemia Aneurysm Arrhythmia Clotting disorder Atrial fibrillation Heart disease Congenital heart disease Carotid artery disease Pulmonary embolism Hypertension Social History Smoking and tobacco/nicotine status: former use of tobacco/nicotine Quit status (tobacco/nicotine): has quit using Year quit tobacco: 1991 Former quit date comment: Smoked 30 years at 1 ppd Second hand smoke exposure: No Alcohol intake: former Course Vital Signs: Vital signs: Vital Signs Temperature 98.4 F 09/10/23 22:01 Pulse Rate 89 09/11/23 00:23 Respiratory Rate 16 09/10/23 22:01 Blood Pressure 123/86 09/10/23 22:01 Pulse Oximetry 97 09/11/23 00:23 Oxygen Delivery Me thod Room Air 09/11/23 00:23 MDM - Abdominal Pain Lab Data Labs/Radiology: Radiology Impressions Abdomen X-Ray 09/10/23 20:17 IMPRESSION: Rectosigmoid fecal distension suggesting a low-grade obstruction due to fecalith All radiology interpretation(s) finalized by discharge Discharge Plan Discharge Patient Disposition: Home Clinical Impression: Fecal impaction in rectum Condition: Stable Prescriptions: No Action multivitamin Tablet 1 tab PO QAM pyridostigmine bromide 60 mg tablet 60 mg PO BID Qty: 60 3RF metoprolol tartrate 25 mg tablet 12.5 mg PO BID Qty: 30 3RF ProAir HFA 90 mcg/actuation HFA aerosol inhaler 2 puff INHALATION Q4H PRN (Reason: Shortness Of Breath) Qty: 8.5 3RF levothyroxine 125 mcg tablet 125 mcg PO QAM Qty: 90 3RF Spiriva Respimat 2.5 mcg/actuation mist 2 puff inhalation DAILY Qty: 4 5RF atorvastatin 80 mg tablet 80 mg PO DAILY Qty: 90 1RF Miralax 17 gram/dose powder 17 g PO TID PRN (Reason: constipation) Qty: 238 0RF Discharge Orders: Discharge ED (Routine); Ordered 09/11/23 Ordered By: Abraham Rowell Referrals: Vj Michelle MD [Primary Care Provider] - Discharge Diet: Usual diet Discharge Activity: Increase activity as tolerated Patient Instructions: Constipation (ED) Activity Restrictions/Additional Instructions: Drink plenty water and fluids. Continue with routine medications as directed. Follow-up with primary care for further instructions. Coding Level of Care Code ED [employer] Building for Miguelito Sinha
[2023-09-11 00:23] VITALS: PULSE 89; O2SAT 97
== END 2023-09-11 03:36 | disposition home or self-care (01) ==
PROVIDERS: Emergency Provider Nurse Practitioner Family; PCP Family Medicine Adult Medicine
DX: K56.41 Fecal impaction (principal); Z87.891 Personal history of nicotine dependence; N18.30 Chronic kidney disease, stage 3 unspecified; E78.5 Hyperlipidemia, unspecified; F03.90 Unspecified dementia, unspecified severity, without behavioral disturbance, psychotic disturbance, mood disturbance, and anxiety; J44.9 Chronic obstructive pulmonary disease, unspecified; Z85.46 Personal history of malignant neoplasm of prostate
CPT/HCPCS: 74018; 99283

== ENCOUNTER 2023-11-25 16:33 | Emergency (ER) | payer MEDICARE, BC, SELFPAY ==
[2023-11-25 16:38] VITALS: BP 115/69; PULSE 95; RESP 16; TEMP 36.6; O2SAT 100; BMI 29.5
[2023-11-25 16:44] VITALS: BP 114/69; PULSE 94; RESP 16; O2SAT 91
--- NOTE | 2023-11-25 17:03 | XRR_ITS ---
PROCEDURE INFORMATION: Exam: XR Abdomen Exam date and time: 11/25/2023 5:11 PM Age: 88 years old Clinical indication: Constipation; Prior surgery; Surgery date: 6+ months; Surgery type: Hernia TECHNIQUE: Imaging protocol: Radiologic exam of the abdomen. Views: Frontal supine view of the abdomen. 1 View. COMPARISON: CR XR abdomen 1V* [id number] 09/10/2023 8:37 PM FINDINGS: Gastrointestinal tract: Large colonic stool burden with gaseous distension of the colon. No evidence of free air or pneumatosis. Bones/joints: No evidence of acute osseous abnormality. XR/XR KUB [id number] IMPRESSION: 1. Large colonic stool burden with gaseous distension of the colon.
--- NOTE | 2023-11-25 17:30 | ED_ITS ---
HPI - Abdominal Pain General: Chief Complaint: Abdominal Pain Stated Complaint: consipation Time Seen by Provider: 11/25/23 17:11 Source: family (spouse) Mode of arrival: ambulatory Limitations: other (hx of dementia) History of Present Illness: Patient is a 88-year-old male with history of dementia presenting to the emergency department with spouse due to constipation. Per spouse, who is primary historian, patient has not had a normal bowel movement been going on 2 weeks. He has been here in the emergency department for the same issue twice before where he has required manual disimpaction with enema. They were seen in urgent care earlier today and prescribed mag citrate and told to drink prune juice, this reportedly has not helped. Patient is only complaining of some mild abdominal cramping, no other symptoms or pertinent historical factors to report at this time. MD elicited complaint: abdominal pain and other (Constipation) Pertinent past history: constipation Onset (ago): week(s) Pain Consistency: constant Quality: cramping Associated Symptoms: Reports constipation; Denies bloating, change in stool character, chills, diarrhea, dysuria, fever(s), hematochezia, nausea and vomiting Treatments prior to arrival: other (Mag citrate, prune juice, Metamucil) Related Data Home Medications Medication Instructions Recorded Confirmed multivitamin 1 tab PO QAM 10/12/20 08/08/23 Previous Rx's Medication Instructions Recorded albuterol sulfate 90 mcg/actuation 2 puff inhalation Q4H PRN 08/27/22 aerosol inhaler (ProAir HFA) Shortness Of Breath #8.5 grams tiotropium bromide 2.5 2 puff inhalation DAILY breathing 08/27/22 mcg/actuation mist for inhalation #4 grams (Spiriva Respimat) polyethylene glycol 3350 17 17 g PO TID PRN constipation #238 10/19/22 gram/dose oral powder (Miralax) grams pyridostigmine bromide 60 mg tablet 60 mg PO BID #60 tabs 07/15/23 atorvastatin 80 mg tablet 80 mg PO DAILY choleserol/fats #90 09/02/23 tabs metoprolol tartrate 25 mg tablet See Rx Instructions .Route 09/22/23 .COMPLEX #60 tabs levothyroxine 125 mcg tablet 125 mcg PO QAM thyroid #90 tabs 11/11/23 Allergies Allergy/AdvReac Type Severity Reaction Status Date / Time No Known Allergies Allergy Verified 11/25/23 09:50 Review of Systems General: Reports: 10 or more systems reviewed and unremarkable except in HPI and below Const: Denies: fever(s), chills, change in appetite, change in weight or diaphoresis ENMT: Denies: throat pain or hoarseness Card: Denies: chest pain, palpitations or lightheadedness Resp: Denies: dyspnea, productive cough or wheezing GI: Reports: abdominal pain and constipation; Denies: nausea, vomiting, diarrhea, bloating, change in stool character or hematochezia : Denies: flank pain, difficulty urinating, dysuria, urinary frequency or urinary urgency Musc: Denies: neck pain or back pain Skin/Breast: Denies: rash or new lesions Neuro: Denies: headache(s) or dizziness PFSH ED PFSH: Medical History Syncope and collapse Severe hypotension Hyperlipidemia CKD (chronic kidney disease), stage III History of prostate cancer Orthostatic hypotension BPH (benign prostatic hyperplasia) Hypothyroidism Dementia COPD (chronic obstructive pulmonary disease) Family History Father Chronic kidney disease (CKD) Sudden cardiac Mother Hyperlipidemia Stroke TIA (transient ischemic attack) Denies family history of CAD (coronary artery disease) Congestive heart failure (CHF) Anemia Aneurysm Arrhythmia Clotting disorder Atrial fibrillation Heart disease Congenital heart disease Carotid artery disease Pulmonary embolism Hypertension Social History Smoking and tobacco/nicotine status: former use of tobacco/nicotine Quit status (tobacco/nicotine): has quit using Year quit tobacco: 1991 Former quit date comment: Smoked 30 years at 1 ppd Second hand smoke exposure: No Alcohol intake: former Physical Exam Const: COMMON NORMALS: no acute distress, no limitations, healthy appearing, alert and well nourished GENERAL APPEARANCE: cooperative and comfortable NUTRITIONAL APPEARANCE: obese ORIENTATION/CONSCIOUSNESS: Yes awake HENMT: COMMON NORMALS: normocephalic, atraumatic, hearing grossly normal bilaterally, external ears normal, Normal external nose present, Normal nasal mucous membranes and turbinates present and moist oral mucous membranes HEAD & SCALP: normocephalic and atraumatic NOSE: Normal external nose present and Normal nasal mucous membranes and turbinates present EXTERNAL EAR: Yes external ears normal Eye: COMMON NORMALS: Equal, round and reactive pupils present, EOMs intact bilaterally, conjunctivae normal and normal visual walker by confrontation CONJUNCTIVA: Yes conjunctivae normal PUPIL: Yes Equal, round and reactive pupils present Neck/C-Spine: COMMON NORMALS: full ROM, supple, no meningeal signs and no JVD Resp: COMMON NORMALS: normal respiratory effort, No retractions, No use of accessory muscles and clear to auscultation bilaterally AUSCULTATION: clear to auscultation bilaterally, no crackles, no rales, no rhonchi and no wheezes Cardio: COMMON NORMALS: no JVD, regular rate, regular rhythm, S1 normal heart sound present, S2 normal heart sound present, No gallops present (Cardio), No clicks present (Cardio), No murmurs present (Cardio), No rub (Cardio) and Peripheral pulses 2+ throughout RATE: regular rate RHYTHM: regular rhythm HEART SOUNDS: S1 normal heart sound present and S2 normal heart sound present PERIPHERAL PULSES: Peripheral pulses 2+ throughout GI: COMMON NORMALS: No hepatosplenomegaly present and no masses AUSCULTATION: Yes Hyperactive bowel sounds present PALPATION: Yes Firmness to palpation present (GI), Yes Tenderness to palpation present (GI) (Mild bilateral lower quadrant tenderness to palpation), No Guarding due to palpation present (GI), No Rigid due to palpation and Yes No hepatosplenomegaly present : COMMON NORMALS: Yes no CVA tenderness BLADDER/KIDNEY EXAM: Yes no CVA tenderness Back/Pelvis: COMMON NORMALS: no CVA tenderness Extremity: COMMON NORMALS: normal to inspection and full ROM Neuro: COMMON NORMALS: moves all extremities, no focal motor deficits and no sensory deficits noted SENSORIUM/ORIENTATION: Yes alert MENINGEAL SIGNS: Yes no meningeal signs Psych: COMMON NORMALS: mental status grossly normal, cooperative and speech normal SPEECH: Yes normal speech Skin: COMMON NORMALS: no rashes or lesions noted GENERAL SKIN EXAM: no rashes or lesions noted Course Vital Signs: Vital signs: Vital Signs Temperature 97.9 F 11/25/23 16:38 Pulse Rate 93 11/25/23 19:38 Respiratory Rate 18 11/25/23 19:25 Blood Pressure 138/83 11/25/23 19:38 Pulse Oximetry 94 11/25/23 19:38 Oxygen Delivery Me thod Room Air 11/25/23 19:25 MDM - Abdominal Pain Medical Decision Making Patient presented with spouse for constipation for the past week or so. History of similar has been seen here in the past where he has been disimpacted and had an enema. He was seen in urgent care earlier and prescribed mag citrate as well as prune juice, still has not had normal bowel movement. Physical exam somewhat limited from patient's history of dementia, though does not appear to have any significant abdominal tenderness to palpation, though was noted to be distended and firm. X-ray showed large stool burden, however patient was able to evacuate some stool with glycerin suppository and lactulose. Shared decision making performed with spouse, and that she would elect to try further, more aggressive treatment at home with medications that we will prescribe, and to return if patient unable to have any more bowel movement. Patient also had soiled himself somewhat in the bed so bowels have been continuing to move up until discharge. Spouse agrees with plan and patient discharged home with commendation of mag citrate, lactulose, and mineral oil. Also instructed to continue MiraLAX and increase fiber and fluid intake care patient discussed with Dr. Kang. Lab Data Labs/Radiology: Radiology Impressions KUB X-Ray 11/25/23 17:03 IMPRESSION: 1. Large colonic stool burden with gaseous distension of the colon. All radiology interpretation(s) finalized by discharge Discharge Plan Discharge Patient Disposition: Home Clinical Impression: Constipation Qualifiers: Constipation type: unspecified constipation type Qualified Code(s): K59.00 - Constipation, unspecified Condition: Stable Prescriptions: No Action multivitamin Tablet 1 tab PO QAM pyridostigmine bromide 60 mg tablet 60 mg PO BID Qty: 60 3RF ProAir HFA 90 mcg/actuation HFA aerosol inhaler 2 puff INHALATION Q4H PRN (Reason: Shortness Of Breath) Qty: 8.5 3RF Spiriva Respimat 2.5 mcg/actuation mist 2 puff inhalation DAILY Qty: 4 5RF atorvastatin 80 mg tablet 80 mg PO DAILY Qty: 90 1RF metoprolol tartrate 25 mg tablet See Rx Instructions .ROUTE .COMPLEX Qty: 60 3RF Dose Instruction: TAKE 1 TABLET BY MOUTH TWICE DAILY Rx Instructions: TAKE 1 TABLET BY MOUTH TWICE DAILY levothyroxine 125 mcg tablet 125 mcg PO QAM Qty: 90 3RF Miralax 17 gram/dose powder 17 g PO TID PRN (Reason: constipation) Qty: 238 0RF Discharge Orders: Discharge ED (Routine); Ordered 11/25/23 Ordered By: Loki Chester Referrals: Vj Michelle MD [Primary Care Provider] - Discharge Diet: As Directed Discharge Activity: Increase activity as tolerated Patient Instructions: Constipation (ED) Activity Restrictions/Additional Instructions: Increase your dietary fiber intake and fluid intake as discussed. Take constipation medications at home as provided. Continue taking MiraLAX. If symptoms do not improve please return for manual disimpaction as discussed. Otherwise please follow-up with primary care provider. Coding Level of Care Code ED Director Of Casework for Miguelito Sinha
[2023-11-25] MEDS: lactulose oral liq 20 gm/30 mL UDC 30 GM PO ×2 (17:44→19:22)
[2023-11-25] MEDS: glycerin adult supp 1 EACH PR (17:45)
[2023-11-25] MEDS: Fleet Enema 133 mL Enema PR (18:52)
[2023-11-25] MEDS: magnesium citrate Btl 296 mL PO (19:22)
[2023-11-25] MEDS: mineral oil 30 mL UDC PO (19:23)
[2023-11-25 19:25] VITALS: BP 138/83; PULSE 92; RESP 18; O2SAT 93
[2023-11-25 19:38] VITALS: BP 138/83; PULSE 93; O2SAT 94
== END 2023-11-25 19:40 | disposition home or self-care (01) ==
PROVIDERS: Emergency Provider Physician Assistant; PCP Family Medicine Adult Medicine
DX: K59.00 Constipation, unspecified (principal); Z87.891 Personal history of nicotine dependence; N18.30 Chronic kidney disease, stage 3 unspecified; E78.5 Hyperlipidemia, unspecified; Z85.46 Personal history of malignant neoplasm of prostate; F03.90 Unspecified dementia, unspecified severity, without behavioral disturbance, psychotic disturbance, mood disturbance, and anxiety; J44.9 Chronic obstructive pulmonary disease, unspecified
CPT/HCPCS: 74018; 99283

== ENCOUNTER → 2024-01-20 10:15 | Outpatient (BNVA) | payer MEDICARE, BC, SELFPAY | PROVIDERS: PCP Family Medicine Adult Medicine; Visit Provider Internal Medicine Cardiovascular Disease | DX: E78.5 Hyperlipidemia, unspecified (principal); R94.39 Abnormal result of other cardiovascular function study; I95.1 Orthostatic hypotension; E78.2 Mixed hyperlipidemia; Z87.891 Personal history of nicotine dependence | CPT/HCPCS: 36415; 80061; 80076; 99204 ==

== ENCOUNTER → 2024-03-16 15:15 | Outpatient (BNVA) | payer MEDICARE, BC, SELFPAY | PROVIDERS: PCP Family Medicine Adult Medicine; Visit Provider Family Medicine | DX: I95.9 Hypotension, unspecified (principal); E78.2 Mixed hyperlipidemia; E03.4 Atrophy of thyroid (acquired); F03.A3 Unspecified dementia, mild, with mood disturbance | CPT/HCPCS: 80048; 82607; 84439; 84443; 85025 ==

== ENCOUNTER → 2024-07-20 11:06 | Outpatient (BNVA) | payer MEDICARE, BC, SELFPAY | PROVIDERS: PCP Family Medicine; Visit Provider Nurse Practitioner Family | DX: I95.1 Orthostatic hypotension (principal); R94.30 Abnormal result of cardiovascular function study, unspecified; E78.2 Mixed hyperlipidemia; Z87.891 Personal history of nicotine dependence | CPT/HCPCS: 99213 ==

== ENCOUNTER 2025-01-12 09:44 | Outpatient (RCR) | payer MEDICARE, BC, SELFPAY | END 2025-01-14 23:59 | disposition home or self-care (01) | LOC: SPT 09:44 | PROVIDERS: Visit Provider Family Medicine | DX: M62.81 Muscle weakness (generalized) (principal); R29.6 Repeated falls | CPT/HCPCS: 97161 ==

== ENCOUNTER 2025-01-15 05:00 | Outpatient (RCR) | payer MEDICARE, BC, SELFPAY | END 2025-02-13 23:59 | disposition home or self-care (01) | LOC: SPT 05:00 | PROVIDERS: Visit Provider Family Medicine | DX: R53.1 Weakness (principal); R29.6 Repeated falls | CPT/HCPCS: 97110; 97112; 97116 ==